=== PATIENT | female | born 1965 | race Caucasian/White ===

== ENCOUNTER 2016-06-12 23:05 | Emergency (ER) | payer OTHER ==
[2016-06-12 23:30] VITALS: TEMP 98.2
[2016-06-13] MEDS ORDERED: HYDROmorphone 1 MG/ML 1 ML SYRINGE IM STA (00:07)
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
[2016-06-13 00:38] VITALS: BP 94/55; PULSE 87; RESP 18
== END 2016-06-13 00:38 | disposition home or self-care (01) ==
LOC: EC 23:05
DX: G89.29 Other chronic pain (principal); M79.662 Pain in left lower leg; G40.909 Epilepsy, unspecified, not intractable, without status epilepticus; F31.9 Bipolar disorder, unspecified; F41.9 Anxiety disorder, unspecified; F17.200 Nicotine dependence, unspecified, uncomplicated; F60.3 Borderline personality disorder; Z87.891 Personal history of nicotine dependence; Z87.828 Personal history of other (healed) physical injury and trauma; Z79.899 Other long term (current) drug therapy
CPT/HCPCS: 99283; 96372; J1170

== ENCOUNTER 2016-06-22 18:08 | Emergency (ER) | payer OTHER ==
[2016-06-22] MEDS ORDERED: HYDROmorphone 1 MG/ML 1 ML SYRINGE IM STA (19:19)
[2016-06-22] MEDS ORDERED: methylPREDNISolone SOD SUCCI 125 MG/2 ML VIAL IM STA (19:19)
[2016-06-22] MEDS ORDERED: ONDANSETRON ODT 4 MG TAB PO STA (19:19)
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
--- NOTE | 2016-06-22 19:43 | XR ---
EXAMINATION TYPE: XR lumbar spine 2 or 3V DATE OF EXAM: 06/22/2016 7:34 PM CLINICAL HISTORY: Low back pain. TECHNIQUE: Frontal and lateral images of the lumbar spine are obtained. COMPARISON: Lumbar spine x-ray from 01/10/2014. FINDINGS: There are 5 lumbar type vertebral bodies identified. The lumbar spine shows loss of andreea l lumbar lordosis without evidence of acute fracture or dislocation. Vertebral body heights and disk space heights are within normal limits. No significant spurring is seen. The overlying soft tissue ap pears unremarkable. IMPRESSION: Loss of normal lumbar lordosis otherwise unremarkable study. No significant change from p rior.
[2016-06-22] MEDS ORDERED: CYCLOBENZAPRINE 10MG STARTER 3 TAB BTL PO STA (20:15)
[2016-06-22 20:31] VITALS: BP 148/76; PULSE 88; RESP 16; TEMP 96.9
== END 2016-06-22 20:30 | disposition home or self-care (01) ==
LOC: EC 18:08
DX: M54.5 Low back pain (principal); G40.909 Epilepsy, unspecified, not intractable, without status epilepticus; F60.3 Borderline personality disorder; F31.9 Bipolar disorder, unspecified; F41.9 Anxiety disorder, unspecified; F41.0 Panic disorder [episodic paroxysmal anxiety]; F17.200 Nicotine dependence, unspecified, uncomplicated; Z79.899 Other long term (current) drug therapy
CPT/HCPCS: 72100; 99283; 96372 ×2; J2930; J1170

== ENCOUNTER → 2016-07-01 | Outpatient (CLI) | payer OTHER ==
--- NOTE | 2016-07-01 15:39 | NM ---
EXAMINATION TYPE: NM bone scan whole body DATE OF EXAM: 07/01/2016 3:29 PM COMPARISON: NONE HISTORY: Back pain Delayed whole-body scanning was performed following the injection of 27 mCi Tc 99m MDP. Images acqui red 4 hours post injection. FINDINGS: There is abnormal uptake throughout the lower cervical and thoracic spine with curvature suggestive o f a scoliosis. Heterogeneous uptake throughout the rib cage bilaterally is nonspecific. Uptake within the feet knees and shoulders likely arthritic. IMPRESSION: 1. Abnormal uptake throughout the lower cervical and thoracic spine is typical of degenerative disc d isease. Correlate with MRI or x-ray as clinically warranted.
== END | disposition home or self-care (01) ==
LOC: RADNMMAIN 10:30
PROVIDERS: ATTEND Family Medicine
DX: R93.7 Abnormal findings on diagnostic imaging of other parts of musculoskeletal system (principal); G95.20 Unspecified cord compression
CPT/HCPCS: 78306; A9503

== ENCOUNTER 2016-09-03 20:06 | Emergency (ER) | payer OTHER ==
[2016-09-03 20:11] VITALS: BP 117/82; PULSE 96; RESP 18; TEMP 97.6
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
== END 2016-09-03 21:59 | disposition home or self-care (01) ==
LOC: EC 20:06
DX: F43.0 Acute stress reaction (principal); R41.82 Altered mental status, unspecified; F31.9 Bipolar disorder, unspecified; G40.909 Epilepsy, unspecified, not intractable, without status epilepticus; F17.200 Nicotine dependence, unspecified, uncomplicated; Z79.1 Long term (current) use of non-steroidal anti-inflammatories (NSAID); Z79.899 Other long term (current) drug therapy
CPT/HCPCS: 80306; 82075; 99284

== ENCOUNTER → 2017-05-06 | Outpatient (CLI) | payer OTHER ==
--- NOTE | 2017-05-09 08:12 | MM ---
Reason for exam: clinical finding. Baseline mammogram. History: Family history of breast cancer in mother at age 70, breast cancer in paternal grandmother at age 60, breast cancer in paternal aunt, breast cancer in maternal aunt, breast cancer in paternal cousin, and breast cancer in maternal cousin. Indicated problem(s): lump or thickening in the right breast. Physical Findings: Nurse Summary: 2 x3cm nodule in the left breast at 2 o'clock (nurse ts). [facility] Diagnostic Mammo w CAD GLADYS Bilateral CC and MLO view(s) were taken. The breast tissue is extremely dense which could obscure a lesion on mammography. Scattered bilateral calcifications. These results were verbally communicated with the patient and result sheet given to the patient on 05/06/17. ASSESSMENT: Incomplete: need additional imaging evaluation, BI-RAD 0 RECOMMENDATION: Ultrasound of the left breast. Manage patient on a clinical basis.
--- NOTE | 2017-05-09 08:18 | USB ---
Reason for exam: additional evaluation requested from abnormal screening. History: Family history of breast cancer in mother at age 70, breast cancer in paternal grandmother at age 60, breast cancer in paternal aunt, breast cancer in maternal aunt, breast cancer in paternal cousin, and breast cancer in maternal cousin. US Breast Limited LT Left breast ultrasound demonstrates a 0.6 x 0.6 x 0.4cm oval, cystic lesion at 12 o'clock, a 0.3 x 0.5 x 0.2cm oval, cystic lesion at 1 o'clock, a 2.7 x 2.6 x 1.8cm oval, cystic lesion at 2 o'clock BB, duct ectasia at 3 o'clock and posterior nipple, a 0.3 x 0.3 x 0.3cm oval lesion too small to characterize at 3 o'clock and a 0.6 x 0.7 x 0.6cm oval, cystic lesion at 3 o'clock. These results were verbally communicated with the patient and result sheet given to the patient on 05/06/17. ASSESSMENT: Benign, BI-RAD 2 RECOMMENDATION: Routine screening mammogram of both breasts in 1 year. Manage patient on a clinical basis.
== END | disposition home or self-care (01) ==
LOC: RADMAMWWP 13:11
PROVIDERS: ATTEND Family Medicine
DX: R92.8 Other abnormal and inconclusive findings on diagnostic imaging of breast (principal); N63.0 Unspecified lump in unspecified breast
CPT/HCPCS: 77066

== ENCOUNTER 2017-07-10 13:32 | Emergency (ER) | payer OTHER ==
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
[2017-07-10] MEDS ORDERED: SODIUM CHLORIDE 0.9% 1,000 ML IV STA (14:07)
[2017-07-10] MEDS ORDERED: SODIUM CHLORIDE 0.9% 500 ML IV STA (14:07)
[2017-07-10 14:20] LABS: Basophils % (A) 0 %; Eosinophils # (A) 0.1 k/uL (0-0.7); Eosinophils % (A) 1 %; HCT 47.2 % (34.0-46.0); HGB 15.5 gm/dL (11.4-16.0); Lymphocytes # (A) 2.9 k/uL (1.0-4.8); Lymphocytes % (A) 20 %; MCH 31.4 pg (25.0-35.0); MCHC 32.9 g/dL (31.0-37.0); MCV 95.5 fL (80.0-100.0); Mean Platelet Volume 7.1; Monocytes # (A) 0.7 k/uL (0-1.0); Monocytes % (A) 5 %; Neutrophils # (A) 10.6 k/uL (1.3-7.7); Neutrophils % (A) 72 %; Platelet Count 328 k/uL (150-450); RBC 4.94 m/uL (3.80-5.40); RDW 13.1 % (11.5-15.5); WBC 14.8 k/uL (3.8-10.6)
[2017-07-10 14:30] LABS: ALT 23 U/L (9-52); AST 18 U/L (14-36); Acetaminophen <10.0 ug/mL; Albumin 4.9 g/dL (3.5-5.0); Alkaline Phosphatase 60 U/L (38-126); Anion Gap 17 mmol/L; Blood Urea Nitrogen 17 mg/dL (7-17); Calcium 10.5 mg/dL (8.4-10.2); Carbon Dioxide 24 mmol/L (22-30); Chloride 99 mmol/L (98-107); Glucose 139 mg/dL (74-99); Magnesium 1.2 mg/dL (1.6-2.3); Potassium 3.5 mmol/L (3.5-5.1); Salicylate <1.0 mg/dL; Sodium 140 mmol/L (137-145); Total Bilirubin 0.5 mg/dL (0.2-1.3); Total Protein 7.4 g/dL (6.3-8.2)
[2017-07-10 14:40] LABS: Creatine Kinase 40 U/L (30-135)
[2017-07-10 14:53] LABS: Creatine Kinase MB <0.2 ng/mL (0.0-2.4); Troponin I <0.012 ng/mL (0.000-0.034)
[2017-07-10] MEDS ORDERED: diphenhydrAMINE 50 MG/ML 1 ML VIAL IVP STA (15:03)
[2017-07-10] MEDS ORDERED: MORPHINE SULFATE 4 MG/ML SYRINGE IVP STA ×2 (15:03→16:19)
[2017-07-10] MEDS ORDERED: ONDANSETRON 4 MG/2 ML VIAL IVP STA (15:03)
[2017-07-10] MEDS ORDERED: methylPREDNISolone SOD SUCCI 250 MG in SODIUM CHLORIDE 0.9% 100 ML IVPB STA (15:06)
--- NOTE | 2017-07-10 16:14 | CT ---
EXAMINATION TYPE: CT brain wo con DATE OF EXAM: 07/10/2017 COMPARISON: 08/18/2015 HISTORY: 52-year-old female with pain, Migraines TECHNIQUE: Examination was done in axial plane without intravenous contrast. Coronal and sagittal r econstructions performed. CT DLP: 945.5 mGycm Automated exposure control for dose reduction was used. FINDINGS: There is no evidence of acute intracranial hemorrhage, acute ischemic changes, mass, mass-effect, or extra-axial fluid collection. There is no effacement of cerebral sulci or basal subarachnoid cister ns. There is no hydrocephalus. There is no midline shift. Mead-white matter distinction is preserv ed. Patient's gaze is slightly divergent suggesting underlying strabismus. Minimal opacification posterio r left ethmoid air cells is similar to prior. Mastoid air cells well pneumatized. Orbits and globes o therwise intact. IMPRESSION: No acute intracranial abnormality seen.
[2017-07-10 16:16] VITALS: RESP 18
[2017-07-10] MEDS ORDERED: KETOROLAC 30 MG/ML 1 ML VIAL IVP STA (16:19)
[2017-07-10] MEDS ORDERED: LORazepam 2 MG/ML INJ IV STA (16:19)
[2017-07-10 17:03] VITALS: BP 119/75; PULSE 96; TEMP 98
== END 2017-07-10 17:04 | disposition home or self-care (01) ==
LOC: EC 13:32
DX: G43.909 Migraine, unspecified, not intractable, without status migrainosus (principal); G40.909 Epilepsy, unspecified, not intractable, without status epilepticus; F31.9 Bipolar disorder, unspecified; F17.200 Nicotine dependence, unspecified, uncomplicated; Z79.1 Long term (current) use of non-steroidal anti-inflammatories (NSAID); Z79.899 Other long term (current) drug therapy
CPT/HCPCS: 36415; 93005; 80053; 82550; 82553; 83735; 84100; 84443; 84484; 85025; 83520 ×2; 70450; 99284; 96365; 96375 ×5; 96376; 96361; J2060; J2270; J1200; J2930; J2405; J1885

== ENCOUNTER → 2017-07-28 | Outpatient (CLI) | payer OTHER ==
[2017-07-28 12:13] VITALS: BP 113/70; PULSE 90; RESP 18
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
== END | disposition home or self-care (01) ==
LOC: PNWHC3 11:45
PROVIDERS: ATTEND Anesthesiology
DX: G89.21 Chronic pain due to trauma (principal); M47.816 Spondylosis without myelopathy or radiculopathy, lumbar region; M47.812 Spondylosis without myelopathy or radiculopathy, cervical region; R51 Headache; G40.909 Epilepsy, unspecified, not intractable, without status epilepticus; Z72.0 Tobacco use; Z91.09 Other allergy status, other than to drugs and biological substances; Z79.899 Other long term (current) drug therapy; Z79.891 Long term (current) use of opiate analgesic; Z79.1 Long term (current) use of non-steroidal anti-inflammatories (NSAID)
CPT/HCPCS: 99211